=== PATIENT | female | born 1970 | race Caucasian/White ===

== ENCOUNTER → 2017-06-17 10:40 | Outpatient (CLI) | payer BC, SELFPAY ==
[2017-06-23 11:58] LABS: HPV Reflexed? NOT INDICATED
== END ==
PROVIDERS: Visit Provider Obstetrics & Gynecology
DX: Z12.4 Encounter for screening for malignant neoplasm of cervix (principal)
CPT/HCPCS: 88175; G0145

== ENCOUNTER → 2017-12-02 07:07 | Outpatient (CLI) | payer BC, SELFPAY | PROVIDERS: Family Provider Internal Medicine; PCP Internal Medicine; Visit Provider Obstetrics & Gynecology | DX: Z12.31 Encounter for screening mammogram for malignant neoplasm of breast (principal) | CPT/HCPCS: 77063; 77067 ==

== ENCOUNTER → 2017-12-08 14:01 | Outpatient (CLI) | payer BC, SELFPAY ==
--- NOTE | 2017-12-08 14:04 | US_ITS ---
STUDY: ULTRASOUND BREAST - RIGHT REASON FOR EXAM: Female, 47 years old. Abnormal screening mammogram. TECHNIQUE: Axial and longitudinal images of the RIGHT breast were performed with a high resolution ultrasound transducer. COMPARISON: Comparison is made with prior mammogram dated December 04, 2016. FINDINGS: RIGHT Breast: Multiple cysts are seen. The largest measures 1.2 cm x 1.1 cm x 0.7 cm. This is at the 11:00 position of the breast at 2 cm from the nipple. IMPRESSION: Multiple small cysts. ASSESSMENT CATEGORY: BIRADS Category 2: Benign. A letter regarding these results will be sent to the patient by the facility within 30 days. Electronically Signed: Amish Yi MD at 14:52 EDT Tel [phone], Service support , STUDY: ULTRASOUND BREAST - LEFT REASON FOR EXAM: Female, 47 years old. Abnormal screening mammogram. TECHNIQUE: Axial and longitudinal images of the LEFT breast were performed with a high resolution ultrasound transducer. COMPARISON: Comparison is made with prior mammogram dated December 02, 2017 and prior ultrasound the left breast dated December 04, 2016. FINDINGS: LEFT Breast: Multiple small cysts are seen. The largest measures 1.4 cm x 1.3 cm x 0.7 cm. This is at the 1:00 position of the breast at 2 cm from the nipple. US/Breast Limited Unilateral IMPRESSION: Multiple cysts. Routine annual mammographic follow-up is recommended. ASSESSMENT CATEGORY: BIRADS Category 2: Benign. A letter regarding these results will be sent to the patient by the facility within 30 days. Electronically Signed: Amish Yi MD at 14:53 EDT Tel [phone], Service support ,
== END ==
PROVIDERS: Family Provider Internal Medicine; PCP Internal Medicine; Visit Provider Obstetrics & Gynecology
DX: R92.8 Other abnormal and inconclusive findings on diagnostic imaging of breast (principal)
CPT/HCPCS: 76642

== ENCOUNTER → 2019-01-06 07:28 | Outpatient (CLI) | payer BC, SELFPAY ==
--- NOTE | 2019-01-06 07:35 | BI_ITS ---
BILATERAL DIGITAL MAMMOGRAM WITH TOMOSYNTHESIS: Mediolateraloblique and craniocaudal views demonstrate a dominant parenchymal mass and superior lateral aspect of the right breast. This has increased in size when compared with previous study obtained on 12/02/2017. This probably represents a cyst, however, because of its increase in size, a targeted right breast ultrasound superior lateral aspect of the right breast is recommended for additional evaluation. The left breast appears to be normal. No cluster of microcalcifications or architectural distortion is seen. No evidence of skin thickening is identified Breast Density: The breast tissue is heterogeneously dense, which may obscure small masses. CAD was used to assist in final assessment. BI/SCREEN MAMM (CAD) W/GREG BILAT IMPRESSION: A focal wall marginated nodular densities seen in the superior lateral aspect of the right breast was actually increased in size. Although this probably represents a cyst, its increase in size could be due to an underlying tumor and for this reason a targeted right breast ultrasound of the superolateral quadrant of the right breast is recommended for further evaluation. ASSESSMENT CATEGORY: FINAL ASSESSMENT: BI-RAD CATEGORY 0 INCOMPLETE: (NEEDS ADDITIONAL IMAGINING EVALUATION) Targeted right breast ultrasound recommended. Approximately 10% of breast cancers are not detected by mammography. A normal mammogram should not delay biopsy of a clinically suspicious abnormality. [id number] Electronically Signed: Hunter Buckley, at 8:25 EDT Tel , Service support ,
== END ==
PROVIDERS: Family Provider Internal Medicine; PCP Internal Medicine; Referring Provider Obstetrics & Gynecology; Visit Provider Obstetrics & Gynecology
DX: Z12.31 Encounter for screening mammogram for malignant neoplasm of breast (principal)
CPT/HCPCS: 77063; 77067

== ENCOUNTER → 2019-01-11 12:47 | Outpatient (CLI) | payer BC, SELFPAY ==
--- NOTE | 2019-01-11 12:49 | US_ITS ---
STUDY: ULTRASOUND BREAST - RIGHT REASON FOR EXAM: Female, 48 years old. Abnormal screening mammogram. TECHNIQUE: Axial and longitudinal images of the RIGHT breast were performed with a high resolution ultrasound transducer. COMPARISON: Comparison is made with prior mammogram dated January 06, 2019 and prior ultrasound of the right breast dated December 08, 2017. FINDINGS: RIGHT Breast: Multiple cysts are seen in the upper outer quadrant of the right breast. The largest measures 2.3 cm x 2 cm x 0.8 cm at the 10:00 position breast at 3 cm from the nipple. US/Breast Limited Unilateral IMPRESSION: Multiple cysts are seen in the upper outer quadrant of the right breast. The largest measures 2.3 cm x 2.0 cm by 0.8 cm. ASSESSMENT CATEGORY: BIRADS Category 2: Benign. A letter regarding these results will be sent to the patient by the facility within 30 days. Electronically Signed: Amish Yi, at 14:13 EDT , Service support ,
== END ==
PROVIDERS: Family Provider Internal Medicine; PCP Internal Medicine; Referring Provider Obstetrics & Gynecology; Visit Provider Obstetrics & Gynecology
DX: N60.11 Diffuse cystic mastopathy of right breast (principal)
CPT/HCPCS: 76642

== ENCOUNTER → 2019-09-15 14:06 | Outpatient (CLI) | payer BC, SELFPAY ==
[2019-09-20 20:44] LABS: HPV Reflexed? NOT INDICATED
== END ==
PROVIDERS: PCP Internal Medicine; Visit Provider Obstetrics & Gynecology
DX: Z12.4 Encounter for screening for malignant neoplasm of cervix (principal)
CPT/HCPCS: 88175; G0145

== ENCOUNTER → 2020-01-10 08:35 | Outpatient (CLI) | payer BC, SELFPAY ==
--- NOTE | 2020-01-10 08:36 | BI_ITS ---
MAMMOGRAPHY - BILATERAL SCREENING REASON FOR EXAM: Female, 49 years old. Routine annual screening examination. PERTINENT HISTORY: Aunt with breast cancer. Prior ultrasound demonstrated bilateral breast cysts. TECHNIQUE: Digital bilateral breast greg (3D mammographic acquisition) in the CC and MLO projections. 2-D mediolateral oblique (MLO) and craniocaudad (CC) views of both breasts were obtained. CAD: Full Field Digital Mammography with Computer Added Detection was performed. COMPARISON: Comparison is made with prior mammogram dated 01/06/2019 and 12/03/2007. FINDINGS: Breast Composition: The breasts are heterogeneously dense, which may obscure small masses. There is a 2.5 cm x 2.4 cm well-defined nodule in the upper lateral portion of the right breast. This has increased in size as compared to prior study. There is also evidence of a tissue clip marker in the anterior superior lateral aspect of the left breast. No other significant abnormalities are identified. BI/SCREEN MAMM (CAD) W/GERG BILAT IMPRESSION: There has been a mild increase in size of the nodular density in the upper outer aspect of the right breast as described. This was demonstrated to be a dominant cyst on prior sonogram.. Yearly follow-up mammogram recommended. (A) ASSESSMENT CATEGORY: BIRADS Category 2: Benign. A letter regarding these results will be sent to the patient by the facility within 30 days. Approximately 10% of breast cancers are not detected by mammography. A normal mammogram should not delay biopsy of a clinically suspicious abnormality. [id number] Electronically Signed: Amish Yi, at 9:36 EDT , Service support ,
== END ==
PROVIDERS: PCP Internal Medicine; Referring Provider Obstetrics & Gynecology; Visit Provider Obstetrics & Gynecology
DX: Z12.31 Encounter for screening mammogram for malignant neoplasm of breast (principal)
CPT/HCPCS: 77063; 77067

== ENCOUNTER → 2021-01-21 07:33 | Outpatient (CLI) | payer BC, SELFPAY ==
--- NOTE | 2021-01-21 07:36 | BI_ITS ---
MAMMOGRAPHY - BILATERAL SCREENING REASON FOR EXAM: Female, 50 years old. Routine annual screening examination. PERTINENT HISTORY: Aunt with breast cancer. TECHNIQUE: Digital bilateral breast greg (3D mammographic acquisition) in the CC and MLO projections. 2-D mediolateral oblique (MLO) and craniocaudad (CC) views of both breasts were obtained. CAD: Full Field Digital Mammography with Computer Added Detection was performed. COMPARISON: Comparison is made with prior study 01/10/2020 and 01/07/2000. FINDINGS: Breast Composition: The breasts are heterogeneously dense, which may obscure small masses. The nodular density in the upper-outer quadrant of the right breast has decreased in size. It presently measures 1.8 cm x 1.3 cm. There now is evidence of a 1.9 cm x 0.8 cm nodule in the upper slightly lateral aspect of the left breast. Correlation with ultrasound of the left breast is recommended for further evaluation. No other significant abnormalities are identified. BI/SCRN MAMM (CAD)W/GREG BILAT IMPRESSION: Interval decrease in size of the right breast nodule in the upper-outer quadrant of the right breast. There is a new 1.9 cm x 0.8 cm nodule in the upper slightly lateral aspect of the left breast. Correlation with ultrasound of the left breast is recommended. ASSESSMENT CATEGORY: BIRADS Category 0: Incomplete. Need additional imaging evaluation. A letter regarding these results will be sent to the patient by the facility within 30 days. Approximately 10% of breast cancers are not detected by mammography. A normal mammogram should not delay biopsy of a clinically suspicious abnormality. [id number] Electronically Signed: Amish Yi MD at 9:03 EDT , Service support ,
== END ==
PROVIDERS: PCP Internal Medicine; Visit Provider Obstetrics & Gynecology
DX: Z12.31 Encounter for screening mammogram for malignant neoplasm of breast (principal)
CPT/HCPCS: 77063; 77067

== ENCOUNTER → 2021-01-30 07:56 | Outpatient (CLI) | payer BC, SELFPAY ==
--- NOTE | 2021-01-30 08:02 | US_ITS ---
STUDY: ULTRASOUND BREAST - LEFT REASON FOR EXAM: Female, 50 years old. Abnormal screening mammogram. TECHNIQUE: Axial and longitudinal images of the LEFT breast were performed with a high resolution ultrasound transducer. # OF IMAGES: [id number] COMPARISON: Comparison is made with prior mammogram dated 01/21/2021. Comparison is also made with prior sonogram of the left breast dated 12/09/2007. FINDINGS: LEFT Breast: The upper outer quadrant of the left breast was examined. There are 3 cysts seen. The largest cyst measures 1 cm x 0.8 cm by 0.6 cm. This is at the 1 o''clock position of the breast at 2 cm from the nipple. This has decreased in size as compared to prior study. US/Breast Limited Unilateral IMPRESSION: 3 small cysts are seen in the upper outer quadrant of the left breast. The largest measures 1 cm x 0.8 cm x 0.6 cm. ASSESSMENT CATEGORY: BIRADS Category 2: Benign. A letter regarding these results will be sent to the patient by the facility within 30 days. Electronically Signed: Amish Yi MD at 10:47 EDT , Service support ,
== END ==
PROVIDERS: PCP Internal Medicine; Referring Provider Obstetrics & Gynecology; Visit Provider Obstetrics & Gynecology
DX: R92.8 Other abnormal and inconclusive findings on diagnostic imaging of breast (principal); N63.20 Unspecified lump in the left breast, unspecified quadrant
CPT/HCPCS: 76642

== ENCOUNTER 2021-05-19 10:41 | Emergency (ER) | payer BC, SELFPAY ==
[2021-05-19] VITALS (7 sets, daily range): BP systolic 97–125; BP diastolic 50–61; PULSE 99–120; RESP 16–18; TEMP 37.3–38.2; O2SAT 99; BMI 24.3
--- NOTE | 2021-05-19 11:05 | US_ITS ---
STUDY: ABDOMINAL ULTRASOUND - RIGHT UPPER QUADRANT REASON FOR VISIT: Female, 50 years old right upper quadrant pain. Fevers and chills. TECHNIQUE: Ultrasound evaluation of the right upper quadrant was performed with real-time and static coon-scale imaging. TECHNICAL QUALITY: Adequate. COMPARISON: None. FINDINGS: Liver: The liver measures 15.3 cm. There is normal echogenicity of the liver. The bile ducts are within normal limits. There is hepatic color flow. The direction of portal flow is hepatopetal. There is no demonstrated mass lesion. Gallbladder: Normal distended gallbladder. The gallbladder wall measures 2 mm. There is a negative sonographic Barrientos''s sign. There is no pericholecystic fluid. There are no gallstones. Findings suggestive of sludge in the gallbladder lumen. Common Bile Duct (C.B.D.): The common bile duct measures 4 mm. Pancreas: Normal size of the head, body and tail of the pancreas. There is normal echogenicity of the pancreas. There is no demonstrated pancreatic mass or cyst. Right Kidney: Normal size of the right kidney. The right kidney measures 11.2 cm x 5.1 cm x 4.9 cm. Normal renal cortex. The right cortex measures 1.1 cm. There is no demonstrated renal mass or cyst. There is no right hydronephrosis. US/Gallbladder IMPRESSION: Findings suggestive of a small amount of sludge in the gallbladder lumen. Electronically Signed: Amish Yi MD at 12:42 EST ,
--- NOTE | 2021-05-19 11:05 | EDS_ITS ---
HPI History of Present Illness Chief Complaint: Flank Pain Informant: patient Onset/Context/Timing Onset: Days (4 days) Context: Gradual Onset Narrative Narrative: Patient developed chills and nausea with general malaise 4 days ago. She states she just went to sleep a lot. She developed bilateral flank pain last evening that wraps around into the upper abdomen. She was seen at urgent care this morning and advised to come to the emergency room. She states they did check her urine and was told it was not a urinary infection. She did state they told her there was blood in her urine as well as ketones. PFSH PFSH Medical History no medical history no medical history Home Medications calcium carbonate 500 mg PO DAILY 10/13/16 [History Last Taken Unknown] cyclobenzaprine 10 mg PO TID 10/13/16 [History Last Taken Unknown] methylprednisolone 4 mg PO DAILY 10/13/16 [History Last Taken Unknown] multivitamin [Daily Multiple Vitamin] 1 ea PO DAILY 10/13/16 [History Last Taken Unknown] oxycodone-acetaminophen 1 - 2 tab PO Q6H PRN PRN #20 tab 10/13/16 [Rx Last Taken Unknown] Allergy/AdvReac Type Severity Reaction Status Date / Time No Known Allergies Allergy Verified 05/19/21 10:42 Social History Smoking Status: Never smoker ROS ROS ED Constitutional Constitutional ED: Reports chills; Denies fever(s) Eyes Eyes: Denies change in vision ENT ENT ED: Denies sore throat Cardiovascular Cardiovascular: Denies chest pain Respiratory/Chest Respiratory/Chest: Denies cough or dyspnea Gastrointestinal Gastrointestinal: Reports abdominal pain and nausea; Denies diarrhea or vomiting Genitourinary Genitourinary ED: Denies dysuria Musculoskeletal Musculoskeletal: Reports back pain Integumentary Denies rash Neurologic Neurologic: Denies headache(s) or weakness Allergic/Immunologic Allergic/Immunologic ED: Denies urticaria EXAM Physical Exam Const Vital Signs: 05/19/21 10:43 05/19/21 13:01 05/19/21 13:11 Temperature 99.2 F H 100.8 F H Temperature Source Oral Oral Pulse Rate 118 H 102 H Respiratory Rate 16 18 Blood Pressure 125/57 H Blood Pressure Mean 79 Pulse Ox 99 Oxygen Delivery Method Room Air 05/19/21 13:34 05/19/21 15:00 05/19/21 16:24 Temperature 100.8 F H 99.3 F H Temperature Source Oral Oral Pulse Rate 102 H 120 H 113 H Respiratory Rate 18 18 18 Blood Pressure 125/57 H 119/61 97/50 L Blood Pressure Mean 79 80 65 Pulse Ox 99 Oxygen Delivery Method Room Air Positive well nourished and well developed General Appearance ED: well developed HEENT Reports moist mucous membranes Eyes PERRL and EOMs intact bilaterally Neck supple Chest Wall inspection of chest normal and palpation of chest normal Resp normal respiratory effort and clear to auscultation bilaterally Cardio regular rate and regular rhythm GI Palpation: soft and tender RUQ Extremity normal to inspection Neuro oriented x3 Sensorium / Orientation: alert Psych mental status grossly normal Skin no rashes or lesions noted MDM MDM Lab Data Labs: Laboratory Results - last 24 hr 05/19/21 05/19/21 05/19/21 11:00 11:00 12:30 WBC 16.3 H RBC 4.48 Hgb 13.7 Hct 41.4 MCV 92.4 MCH 30.6 MCHC 33.1 RDW Std Deviation 45.4 H RDW Coeff of Hernán 13.4 Plt Count 242 MPV 9.3 Immature Gran % (Auto) 0.500 Neut % (Auto) 74.8 H Lymph % (Auto) 6.8 L [place] % (Auto) 17.6 H Eos % (Auto) 0.1 Baso % (Auto) 0.2 Absolute Neuts (auto) 12.2 H Absolute Lymphs (auto) 1.10 Nucleated RBC % 0 Differential Comment COMMENT Diff Path Review May foll Sodium 136 Potassium 3.4 L Chloride 102 Carbon Dioxide 27.0 Anion Gap 7 BUN 10 Creatinine 0.78 Estim Creat Clear Calc 68.25 Est GFR (MDRD) Af Amer 100 Est GFR (MDRD) Non-Af 83 BUN/Creatinine Ratio 12.8 Glucose 107 H Lactic Acid Calcium 8.8 Total Bilirubin 1.40 H Direct Bilirubin 0.34 H AST 31 ALT 35 Alkaline Phosphatase 93 Total Protein 8.1 Albumin 3.4 Globulin 4.7 H Lipase 50 L Urine Color Yellow Urine Clarity Sl. Cloudy Urine pH 6.0 Ur Specific [place] 1.010 Urine Protein 30 H Urine Glucose (UA) Normal Urine Ketones 50 H Urine Occult Blood 50 H Urine Nitrite Negative Urine Bilirubin Negative Urine Urobilinogen Normal Ur Leukocyte Esterase 25 H Urine RBC 0 SEEN Urine WBC 0-5 SEEN Ur Squamous Epith Cells 0-5 SEEN Urine Bacteria RARE Urine Mucus 0 SEEN 05/19/21 13:30 WBC RBC Hgb Hct MCV MCH MCHC RDW Std Deviation RDW Coeff of Hernán Plt Count MPV Immature Gran % (Auto) Neut % (Auto) Lymph % (Auto) [place] % (Auto) Eos % (Auto) Baso % (Auto) Absolute Neuts (auto) Absolute Lymphs (auto) Nucleated RBC % Differential Comment Diff Path Review Sodium Potassium Chloride Carbon Dioxide Anion Gap BUN Creatinine Estim Creat Clear Calc Est GFR (MDRD) Af Amer Est GFR (MDRD) Non-Af BUN/Creatinine Ratio Glucose Lactic Acid 1.0 Calcium Total Bilirubin Direct Bilirubin AST ALT Alkaline Phosphatase Total Protein Albumin Globulin Lipase Urine Color Urine Clarity Urine pH Ur Specific [place] Urine Protein Urine Glucose (UA) Urine Ketones Urine Occult Blood Urine Nitrite Urine Bilirubin Urine Urobilinogen Ur Leukocyte Esterase Urine RBC Urine WBC Ur Squamous Epith Cells Urine Bacteria Urine Mucus Radiography Diagnostic Testing: Clinical Impression(s) from Imaging Studies Gallbladder Ultrasound 05/19/21 11:05 IMPRESSION: Findings suggestive of a small amount of sludge in the gallbladder lumen. Electronically Signed: Amish Yi MD at 12:42 EST , Abdomen/Pelvis CT 05/19/21 14:48 IMPRESSION: 4.2 cm x 5.27 x 4.9 cm cystic mass in the lateral aspect of the left lobe of liver adjacent to the falciform ligament. This may represent a conglomeration of cystic structures versus possible cystic mass or atypical hemangioma. A repeat sonogram of the liver is recommended. Findings suggestive of sludge in the gallbladder lumen. 4 cm x 2.7 cm cyst in the left ovary. Electronically Signed: Amish Yi MD at 15:27 EST , Discharge Plan Triage Chief Complaint: Flank Pain ED Provider: Roya Fuchs Dx/Rx/DC Orders Clinical Impression: Abdominal pain, Fever Instructions: ED Abdominal Pain Unkn Cause Fem, ED FUO Adult Prescriptions: No Action multivitamin [Daily Multiple] 1 EACH tablet 1 ea PO DAILY RF: 0 cyclobenzaprine 10 MG tablet 10 mg PO TID RF: 0 methylprednisolone 4 MG tablet 4 mg PO DAILY RF: 0 calcium carbonate 500 MG tablet 500 mg PO DAILY RF: 0 oxycodone-acetaminophen 1 TABLET tablet 1 - 2 tab PO Q6H PRN PRN (Reason: Pain) Qty: 20 RF: 0 Primary Care Provider: Melania Pulido Referrals: Melania Pulido MD [Primary Care Provider] - 3-5 Days Friend,DO Monty [STAFF PHYSICIAN] - As soon as possible Disposition Disposition: Home, Self Care
[2021-05-19] MEDS: Ondansetron 4 MG/2 ML Vial IV (11:13)
[2021-05-19] MEDS: 0.9% Normal Saline 1,000 ML 1000 ML IV (11:13)
[2021-05-19] MEDS: Morphine 4 MG/ML Syringe IV (11:14)
[2021-05-19 11:27] LABS: Absolute Neutrophil Count 12.2 X10^3/uL (2.0-7.7); Basophil# 0.04 X10^3/uL; Basophil% 0.2 % (0-1); Eosinophil# 0.01 X10^3/uL; Eosinophils% 0.1 % (0-5); Hematocrit 41.4 % (37-47); Hemoglobin 13.7 g/dL (12.0-15.0); Lymphocyte % 6.8 % (19-41); Mean Corp Hgb Conc 33.1 g/dL (32-36); Mean Corpuscular Hgb 30.6 pg (27.0-32.0); Mean Corpuscular Volume 92.4 fL (81-99); Mean Platelet Vol. 9.3 fl (6.2-12.0); Monocyte# 2.86 X10^3/uL; Monocyte% 17.6 % (0-10); NRBC Flagged by Analyzer 0 % (0-5); Neutrophil % 74.8 % (47-70); POSITIVE DIFFERENTIAL YES; Platelet Count 242 K/mm3 (150-450); RBC Distribution Width CV 13.4 % (11.6-14.6); RBC Distribution Width SD 45.4 fl (35.1-43.9); Red Blood Count 4.48 M/mm3 (4.2-5.4); White Blood Count 16.3 K/mm3 (4.4-11.0)
[2021-05-19 11:29] LABS: Differential Indicated SCAN CRITERIA MET
[2021-05-19 11:43] LABS: AST(SGOT) 31 U/L (15-37); Alanine Aminotransfer ALT/SGPT 35 U/L (13-56); Albumin, Serum 3.4 g/dL (3.2-5.0); Alkaline Phosphatase 93 U/L (45-117); Anion Gap 7 (5-15); BUN 10 mg/dL (7-18); BUN/Creat Ratio 12.8 RATIO (10-20); Bilirubin, Direct 0.34 mg/dL (0.00-0.30); Calcium,Total 8.8 mg/dL (8.5-10.1); Chloride 102 mmol/L (98-107); Creatinine, Serum 0.78 mg/dL (0.55-1.02); EST Glomerular Filtration Rate 83 mL/min (>60); Est Glom Filt Rate - Afr Amer 100 mL/min (>60); Estimated Creatinine Clearance 68.25 ml/min; Globulin 4.7 g/dL (2.2-4.2); Glucose 107 mg/dL (74-106); Lipase 50 U/L (73-393); Potassium 3.4 mmol/L (3.5-5.1); Protein, Total 8.1 g/dL (6.4-8.2); Sodium Level 136 mmol/L (136-145)
[2021-05-19 12:37] LABS: Mucous, Urine 0 SEEN /hpf (<or=2+); Red Blood Cells-Urine 0 SEEN /hpf (0-5)
[2021-05-19 13:01] LABS: Color, Urine Yellow (Yellow); Glucose, Dipstick Normal (Normal); Ketone-Dipstick 50 mg/dl (Negative); Leukocyte Esterase-Dipstick 25 /ul (Negative); Nitrite-Dipstick Negative (Negative); Occult Blood-Urine 50 /ul (Negative); Protein-Dipstick 30 mg/dl (Negative); Urine Bilirubin Dipstick Negative (Negative); Urine Clarity Sl. Cloudy (Clear); Urine Urobilinogen Normal (Normal)
[2021-05-19 13:09] LABS: White Blood Cells 0-5 SEEN /hpf (0-5)
[2021-05-19 13:10] LABS: Bacteria RARE /hpf (None Seen); Squamous Epithelial Cells - UA 0-5 SEEN /hpf (5-10)
[2021-05-19] MEDS: Acetaminophen 500 MG Tablet 1000 MG PO (13:38)
--- NOTE | 2021-05-19 14:48 | CT_ITS ---
STUDY: CT ABDOMEN AND PELVIS WITH CONTRAST REASON FOR EXAM: Female, 50 years old. Abdominal pain and nausea. RADIATION DOSAGE (If Supplied By Facility): CTDIvol = ( 3.82 ) mGy, DLP = ( 435.69 ) mGycm TECHNIQUE: Transaxial images were obtained from the dome of the diaphragm to the symphysis pubis with oral contrast. Oral and amp; IV Gastrografin and amp; 100mL Isovue-300 was administered. Sagittal and coronal images were reconstructed. Individualized dose optimization techniques were used for this CT. COMPARISON: None. FINDINGS: Mild degree of increased markings at the lung bases with areas of confluence suggestive of bibasilar atelectasis. The visualized portions of the heart are within normal limits. There is a 4.2 cm by 5.2 cm x 4.9 cm cystic mass in the lateral aspect of the left lobe of liver adjacent to the falciform ligament. This was not well seen on prior ultrasound of the liver done earlier today. A repeat sinogram will be performed. This may represent an atypical hemangioma versus a conglomeration of cysts. I suspect a small amount of sludge in the gallbladder lumen. Normal spleen. Normal pancreas. Normal bilateral adrenal glands. Normal right kidney. Normal left kidney. Normal visualized stomach. Normal small intestine. Normal colon. The appendix is visualized and appears normal. Normal abdominal aorta. Normal inferior vena cava. Normal retroperitoneum. Normal urinary bladder. There is a 4 cm x 2.7 cm cyst in the left ovary. Normal abdominal wall. Normal osseous structures. CT/Abdomen/Pelvis WITH Contrast IMPRESSION: 4.2 cm x 5.27 x 4.9 cm cystic mass in the lateral aspect of the left lobe of liver adjacent to the falciform ligament. This may represent a conglomeration of cystic structures versus possible cystic mass or atypical hemangioma. A repeat sonogram of the liver is recommended. Findings suggestive of sludge in the gallbladder lumen. 4 cm x 2.7 cm cyst in the left ovary. Electronically Signed: Amish Yi MD at 15:27 EST ,
[2021-05-20 15:17] LABS: Pathologist Review Reviewed
== END 2021-05-19 17:33 | disposition home or self-care (01) ==
PROVIDERS: Emergency Provider Emergency Medicine; PCP Internal Medicine; Visit Provider Emergency Medicine
DX: R10.9 Unspecified abdominal pain (principal); R50.9 Fever, unspecified; R31.9 Hematuria, unspecified
CPT/HCPCS: 74177; 76705; 80048; 80076; 81001; 83605; 83690; 85025; 87040; 99285; J7030; Q9967; A4216; J2405

== ENCOUNTER 2021-05-20 06:25 | Emergency (ER) | payer BC, SELFPAY ==
[2021-05-20] VITALS (11 sets, daily range): BP systolic 102–118; BP diastolic 53–76; PULSE 68–121; RESP 16–18; TEMP 37.6–38; O2SAT 92–99; BMI 24.9
[2021-05-20 06:55] LABS: Absolute Lymphocyte Count 0.74 X10^3/uL (0.83-4.51); Absolute Neutrophil Count 11.4 X10^3/uL (2.0-7.7); Basophil# 0.03 X10^3/uL; Basophil% 0.2 % (0-1); Eosinophil# 0.01 X10^3/uL; Eosinophils% 0.1 % (0-5); Hematocrit 36.8 % (37-47); Hemoglobin 12.5 g/dL (12.0-15.0); Lymphocyte # 0.74 X10^3/ul (0.83-4.51); Lymphocyte % 4.9 % (19-41); Mean Corpuscular Hgb 30.6 pg (27.0-32.0); Mean Platelet Vol. 9.2 fl (6.2-12.0); Monocyte# 2.68 X10^3/uL; Monocyte% 17.9 % (0-10); NRBC Flagged by Analyzer 0 % (0-5); Neutrophil # 11.36 X10^3/uL (2.7-7.7); POSITIVE DIFFERENTIAL YES; POSITIVE MORPHOLOGY YES; Platelet Count 218 K/mm3 (150-450); RBC Distribution Width CV 13.2 % (11.6-14.6); RBC Distribution Width SD 43.5 fl (35.1-43.9); Red Blood Count 4.09 M/mm3 (4.2-5.4)
[2021-05-20] MEDS: Ondansetron 4 MG/2 ML Vial IV (06:55)
[2021-05-20] MEDS: Morphine 4 MG/ML Syringe IV (06:55)
[2021-05-20] MEDS: 0.9% Normal Saline 1,000 ML 999 ML IV (06:55)
[2021-05-20 07:02] LABS: Mucous, Urine 0 SEEN /hpf (<or=2+); Red Blood Cells-Urine 0 SEEN /hpf (0-5)
[2021-05-20 07:10] LABS: Lactic Acid 1.1 mmol/L (0.4-1.9)
[2021-05-20 07:12] LABS: Erythrocyte Sedimentation Rate 64 mm/hr (0-30)
[2021-05-20 07:12] LABS: Color, Urine Yellow (Yellow); Glucose, Dipstick Normal (Normal); Leukocyte Esterase-Dipstick 25 /ul (Negative); Nitrite-Dipstick Negative (Negative); Occult Blood-Urine 50 /ul (Negative); Protein-Dipstick 100 mg/dl (Negative); Specific Gravity, Urine 1.015 (1.002-1.030); Urine Bilirubin Dipstick Negative (Negative); Urine Clarity Clear (Clear); Urine Urobilinogen 1 mg/dl (Normal)
[2021-05-20 07:14] LABS: Ketone-Dipstick 150 mg/dl (Negative)
[2021-05-20 07:14] LABS: Differential Indicated SCAN CRITERIA MET
[2021-05-20 07:17] LABS: AST(SGOT) 39 U/L (15-37); Alanine Aminotransfer ALT/SGPT 41 U/L (13-56); Albumin, Serum 2.8 g/dL (3.2-5.0); Alkaline Phosphatase 92 U/L (45-117); Anion Gap 7 (5-15); BUN 10 mg/dL (7-18); BUN/Creat Ratio 15.2 RATIO (10-20); Bilirubin, Direct 0.64 mg/dL (0.00-0.30); Calcium,Total 8.2 mg/dL (8.5-10.1); Chloride 106 mmol/L (98-107); Creatinine, Serum 0.66 mg/dL (0.55-1.02); EST Glomerular Filtration Rate 101 mL/min (>60); Est Glom Filt Rate - Afr Amer 122 mL/min (>60); Estimated Creatinine Clearance 80.65 ml/min; Globulin 4.2 g/dL (2.2-4.2); Glucose 98 mg/dL (74-106); Lipase 26 U/L (73-393); Potassium 3.2 mmol/L (3.5-5.1); Sodium Level 136 mmol/L (136-145)
[2021-05-20 07:18] LABS: Bacteria RARE /hpf (None Seen); Squamous Epithelial Cells - UA 0-5 SEEN /hpf (5-10); White Blood Cells 0-5 SEEN /hpf (0-5)
--- NOTE | 2021-05-20 07:32 | EDS_ITS ---
HPI History of Present Illness Chief Complaint: Abd Pain Narrative Narrative: Patient is a 50-year-old female who was seen in the ER yesterday for same complaint. She states that she developed some mild upper abdominal pain on Wednesday. She states the pain progressed and she developed a fever up to 101. She went to an urgent care and was sent to the ER for further evaluation. In the ER basic blood work was obtained and she did have elevation to her white blood cell count and slight elevation to her liver enzyme. An ultrasound was obtained which showed gallbladder sludge but no obvious stones or signs of infection. A CT was then added which showed a liver mass. The case was di scussed with GI and the decision was made to have the patient go home and follow-up on an outpatient basis. Patient states that the pain worsened overnight and secondary to this comes in for repeat evaluation PFSH PFS Home Medications calcium carbonate 500 mg PO DAILY 10/13/16 [History Last Taken Unknown] multivitamin [Daily Multiple Vitamin] 1 ea PO DAILY 10/13/16 [History Last Taken Unknown] Allergy/AdvReac Type Severity Reaction Status Date / Time No Known Allergies Allergy Verified 05/20/21 06:26 Social History Smoking Status: Never smoker ROS ROS ED Constitutional Constitutional ED: Denies fever(s) ENT ENT ED: Denies sore throat Cardiovascular Cardiovascular: Denies chest pain Respiratory/Chest Respiratory/Chest: Denies cough or dyspnea Gastrointestinal Gastrointestinal: Reports abdominal pain and nausea; Denies diarrhea or vomiting Genitourinary Genitourinary ED: Denies dysuria Musculoskeletal Musculoskeletal: Reports back pain; Denies myalgias Integumentary Denies rash Neurologic Neurologic: Denies headache(s) Hematologic/Lymphatic Hematologic/Lymphatic: Denies easy bleeding or easy bruising EXAM Physical Exam Const Vital Signs: 05/20/21 06:28 05/20/21 07:38 Temperature 99.7 F H Temperature Source Oral Pulse Rate 68 109 H Respiratory Rate 16 16 Blood Pressure 106/66 109/54 L Blood Pressure Mean 79 72 Pulse Ox 98 94 Oxygen Delivery Method Room Air Room Air Positive well nourished and well developed General Appearance ED: well developed HEENT Reports dry mucous membranes Mouth ED: Yes dry mucous membranes Mouth: dry mucous membranes Eyes PERRL and EOMs intact bilaterally General Eye ED: Negative for scleral icterus Neck supple Resp normal respiratory effort and clear to auscultation bilaterally Cardio regular rhythm Rate: tachycardic and other Other Details: Radial pulses are +2-4 bilaterally are equal and symmetric GI non-distended GI Narrative: Abdomen is soft and nondistended with hypoactive bowel sounds. There is pain with palpation in the midepigastric and right upper quadrant region with voluntary guarding at these sites. Otherwise no rigidity or pulsatile mass no fluid wave noted. Palpation: soft Back/Spine no CVA tenderness Extremity normal to inspection Neuro oriented x3 and CN's II-XII intact bilaterally Sensorium / Orientation: alert Motor Exam: strength 5/5 throughout Psych mental status grossly normal Skin no rashes or lesions noted General Skin Exam: Negative for jaundice MDM MDM MDM Narrative Medical decision making narrative: Patient presented to the ER with a low-grade fever and did have pain with palpation in the midepigastric and right upper quadrant with voluntary guarding. As she already had images obtained yesterday felt no need to repeat CT scan or ultrasound. Repeat blood work was obtained and continues to show leukocytosis with just mild decrease from the previous day. Patient's ESR and CRP are elevated as well but lactic acid is normal. Liver enzymes show mild elevation from the previous day with total bilirubin increasing from 1.3-1.8 and direct bilirubin increasing from 0.3 to 0.6. At this time with her voluntary guarding and pain in the right upper quadrant and mild elevation to her liver enzymes with fever and leukocytosis I did have concern for possible acute cholecystitis even though the ultrasound and CAT scan did not show this. Therefore I discussed the case with general surgery on-call. They recommend covering the patient with Zosyn at this time and obtaining an MRI for improved evaluation of the organ. Therefore patient was started on antibiotics and the MRI will be obtained in the ER for further evaluation. At this time MRI results are pending and patient will be signed out to the oncoming physician. Lab Data Attestation: I reviewed the patient's lab results. Labs: Laboratory Results - last 24 hr 05/20/21 05/20/21 05/20/21 06:34 06:34 06:34 WBC 15.0 H RBC 4.09 L Hgb 12.5 Hct 36.8 L MCV 90.0 MCH 30.6 MCHC 34.0 RDW Std Deviation 43.5 RDW Coeff of Hernán 13.2 Plt Count 218 MPV 9.2 Immature Gran % (Auto) 0.900 Neut % (Auto) 76.0 H Lymph % (Auto) 4.9 L Kings % (Auto) 17.9 H Eos % (Auto) 0.1 Baso % (Auto) 0.2 Absolute Neuts (auto) 11.4 H Absolute Lymphs (auto) 0.74 L Nucleated RBC % 0 ESR 64 H Sodium 136 Potassium 3.2 L Chloride 106 Carbon Dioxide 23.0 Anion Gap 7 BUN 10 Creatinine 0.66 Estim Creat Clear Calc 80.65 Est GFR (MDRD) Af Amer 122 Est GFR (MDRD) Non-Af 101 BUN/Creatinine Ratio 15.2 Glucose 98 Lactic Acid 1.1 Calcium 8.2 L Total Bilirubin 1.80 H Direct Bilirubin 0.64 H AST 39 H ALT 41 Alkaline Phosphatase 92 C-React Prot Ext Range 202.00 H Total Protein 7.0 Albumin 2.8 L Globulin 4.2 Lipase 26 L Urine Color Urine Clarity Urine pH Ur Specific [place] Urine Protein Urine Glucose (UA) Urine Ketones Urine Occult Blood Urine Nitrite Urine Bilirubin Urine Urobilinogen Ur Leukocyte Esterase Urine RBC Urine WBC Ur Squamous Epith Cells Urine Bacteria Urine Mucus 05/20/21 06:58 WBC RBC Hgb Hct MCV MCH MCHC RDW Std Deviation RDW Coeff of Hernán Plt Count MPV Immature Gran % (Auto) Neut % (Auto) Lymph % (Auto) Kings % (Auto) Eos % (Auto) Baso % (Auto) Absolute Neuts (auto) Absolute Lymphs (auto) Nucleated RBC % ESR Sodium Potassium Chloride Carbon Dioxide Anion Gap BUN Creatinine Estim Creat Clear Calc Est GFR (MDRD) Af Amer Est GFR (MDRD) Non-Af BUN/Creatinine Ratio Glucose Lactic Acid Calcium Total Bilirubin Direct Bilirubin AST ALT Alkaline Phosphatase C-React Prot Ext Range Total Protein Albumin Globulin Lipase Urine Color Yellow Urine Clarity Clear Urine pH 6.0 Ur Specific [place] 1.015 Urine Protein 100 H Urine Glucose (UA) Normal Urine Ketones 150 A* Urine Occult Blood 50 H Urine Nitrite Negative Urine Bilirubin Negative Urine Urobilinogen 1 H Ur Leukocyte Esterase 25 H Urine RBC 0 SEEN Urine WBC 0-5 SEEN Ur Squamous Epith Cells 0-5 SEEN Urine Bacteria RARE Urine Mucus 0 SEEN Discharge Plan Triage Chief Complaint: Abd Pain ED Provider: Aniket Dumas Dx/Rx/DC Orders Prescriptions: No Action multivitamin [Daily Multiple] 1 EACH tablet 1 ea PO DAILY RF: 0 calcium carbonate 500 MG tablet 500 mg PO DAILY RF: 0 Primary Care Provider: Melania Pulido
[2021-05-20] MEDS: HYDROmorphone 1 MG/ML Syringe IV ×3 (07:39→19:08)
--- NOTE | 2021-05-20 07:40 | MRI_ITS ---
STUDY: MRI ABDOMEN WITH AND WITHOUT CONTRAST REASON FOR EXAM: Female, 50 years old. Liver mass with ? Acute cholecystitis, F/U TO CT ABD TECHNIQUE: Standardized fat and water weighted pulse sequences were obtained in all 3 orthogonal planes post contrast administration. IV Yes YES was administered for the contrast portion of the examination. COMPARISON: CT and ultrasound 05/19/2021 FINDINGS: The visualized lung bases are unremarkable. The visualized portions of the heart are within normal limits. 4 x 6 cm oval T1 hypointense T2 slightly hyperintense mass of the lateral segment left lobe of liver adjacent to the falciform ligament demonstrates heterogeneous thick-walled septal enhancement worrisome for hepatocellular carcinoma. Normal gallbladder and extrahepatic biliary system. Normal spleen. Normal pancreas. Normal bilateral adrenal glands. Normal right kidney. Normal left kidney. Normal visualized stomach. Normal small intestine. Normal colon. There is non-visualization of the appendix. Normal abdominal aorta. Normal inferior vena cava. Normal retroperitoneum. Normal abdominal wall. Normal osseous structures. MRI/MRI Abd WITH and W/O Contrast IMPRESSION: 4 x 6 cm oval heterogeneously enhancing mass of the lateral segment left lobe of the liver worrisome for hepatocellular carcinoma. Electronically Signed: Antonio Partida MD at 9:33 EST ,
--- NOTE | 2021-05-20 09:55 | RAD_ITS ---
STUDY: X-RAY CHEST REASON FOR EXAM: Female, 50 years old. fever TECHNIQUE: Single AP portable view of the chest. COMPARISON: None. FINDINGS: The lungs are clear and expanded. Elevated right hemidiaphragm. Normal size heart. Normal mediastinum and kateryna. Normal visualized pulmonary arteries. Normal visualized aortic arch and descending thoracic aorta. Normal visualized thoracic spine. Normal visualized ribs, clavicles, and shoulders. There is no demonstrated abnormality of the visualized soft tissue structures of the upper abdomen. RAD/Chest 1 View (Portable) IMPRESSION: No active disease. Electronically Signed: Antonio Partida MD at 10:07 EST ,
--- NOTE | 2021-05-20 10:46 | EX.PCM.CON.S ---
Assessment & Plan Assessment/Plan (1) Fever: (2) Liver mass: (3) LUQ abdominal pain: (4) RUQ pain: (5) Epigastric abdominal pain: PLAN: Did review patient's ultrasound, CAT scan, MRI with the patient and her . Also discussed with Dr. Zach Craft who is a hepatobiliary surgeon at [facility]. Dr. Craft was concerned this may also be hepatocellular carcinoma, small chance it may be benign but more likely the former. Did discuss this with patient and her they were agreeable to transfer to [facility] as patient has not been able to eat due to the pain, but has been able to drink. Patient is also tender in the left upper quadrant as well as epigastric/right upper quadrant. Patient did get Zosyn IV in the ER for possible involvement of the gallbladder with cholecystitis. Gallbladder did not appear to have much sludge on ultrasound with a normal wall at 2.2 and no sonographic Barrientos sign. Also discussed with the ER physician Dr. Henson. Dr. Craft thought that would be available mid afternoon at [facility]. Zeenat Farah M.D. Pager: [phone] [facility] [address] [place] [address], [facility], [address] [place] [address] Office: [phone] HPI Consult Data Date of Consult: 05/20/21 HPI Narrative HPI Narrative: EARNESTINE HALL, is a 50 F who presents to the ER due to upper abdominal pain. Patient states initially she had pain and chills on Wednesday night along with some nausea and vomiting over the weekend. On Wednesday morning patient states she woke up to sharp bilateral back pain which wrapped around to her upper abdomen. Patient continued to have nausea and vomiting was not able to eat much over the weekend. Patient came to the ER had an ultrasound as well as CAT scan was sent home. Patient continued to have abdominal pain came back to the ER as he was only able to eat a little bit of saltines. MRI was done as there is a liver lesion seen on CT abdomen pelvis which was concerning for hepatocellular carcinoma on MRI. Patient is never had a previous CT abdomen pelvis. [facility] Home Medications calcium carbonate 500 mg PO DAILY 10/13/16 [History Last Taken Unknown] multivitamin [Daily Multiple Vitamin] 1 ea PO DAILY 10/13/16 [History Last Taken Unknown] Allergy/AdvReac Type Severity Reaction Status Date / Time No Known Allergies Allergy Verified 05/20/21 06:26 Social History Smoking Status: Never smoker ROS Constitutional Constitutional: Reports anorexia, chills and fever(s) ENT HEENT: Denies dizziness Cardiovascular Cardiovascular: Denies chest pain Respiratory/Chest Respiratory/Chest: Denies cough Gastrointestinal Gastrointestinal: Reports abdominal pain, anorexia, nausea and vomiting; Denies hematemesis Genitourinary Genitourinary: Denies burning urination Musculoskeletal Musculoskeletal: Denies joint pain Integumentary Integumentary: Denies rash Neurologic Neurologic: Denies abnormal gait, abnormal hearing, focal weakness, paresthesias or sensory deficit Endocrine Endocrinology: Denies cold intolerance Hematologic/Lymphatic Hematologic/Lymphatic: Denies anemia, easy bleeding or easy bruising Physical Exam Const alert, oriented x3 and no apparent distress HEENT normocephalic and head/scalp atraumatic Resp normal respiratory effort Cardio regular rate GI soft to palpation; Negative for non-distended Palpation: tender epigastric, LUQ, RUQ and other (Equivocal rebound); Negative for guarding Extremity no clubbing, cyanosis or edema Neuro CN's II-XII intact bilaterally Psych mental status grossly normal Lab / Micro Data Result Diagrams: 05/20/21 06:34 05/20/21 06:34 Labs: Laboratory Results - last 24 hr 05/20/21 06:34: WBC 15.0 H, RBC 4.09 L, Hgb 12.5, Hct 36.8 L, MCV 90.0, MCH 30.6, MCHC 34.0, RDW Std Deviation 43.5, RDW Coeff of Hernán 13.2, Plt Count 218, MPV 9.2, Immature Gran % (Auto) 0.900, Neut % (Auto) 76.0 H, Lymph % (Auto) 4.9 L, Sierra % (Auto) 17.9 H, Eos % (Auto) 0.1, Baso % (Auto) 0.2, Absolute Neuts (auto) 11.4 H, Absolute Lymphs (auto) 0.74 L, Nucleated RBC % 0, ESR 64 H 05/20/21 06:34: Sodium 136, Potassium 3.2 L, Chloride 106, Carbon Dioxide 23.0, Anion Gap 7, BUN 10, Creatinine 0.66, Estim Creat Clear Calc 80.65, Est GFR (MDRD) Af Amer 122, Est GFR (MDRD) Non-Af 101, BUN/Creatinine Ratio 15.2, Glucose 98, Calcium 8.2 L, Total Bilirubin 1.80 H, Direct Bilirubin 0.64 H, AST 39 H, ALT 41, Alkaline Phosphatase 92, C-React Prot Ext Range 202.00 H, Total Protein 7.0, Albumin 2.8 L, Globulin 4.2, Lipase 26 L 05/20/21 06:34: Lactic Acid 1.1 05/20/21 06:58: Urine Color Yellow, Urine Clarity Clear, Urine pH 6.0, Ur Specific [place] 1.015, Urine Protein 100 H, Urine Glucose (UA) Normal, Urine Ketones 150 A*, Urine Occult Blood 50 H, Urine Nitrite Negative, Urine Bilirubin Negative, Urine Urobilinogen 1 H, Ur Leukocyte Esterase 25 H, Urine RBC 0 SEEN, Urine WBC 0-5 SEEN, Ur Squamous Epith Cells 0-5 SEEN, Urine Bacteria RARE, Urine Mucus 0 SEEN Radiology Impression Abdomen MRI 05/20/21 07:40 IMPRESSION: 4 x 6 cm oval heterogeneously enhancing mass of the lateral segment left lobe of the liver worrisome for hepatocellular carcinoma. Electronically Signed: Antonio Partida MD at 9:33 EST , Chest X-Ray 05/20/21 09:55 IMPRESSION: No active disease. Electronically Signed: Antonio Partida MD at 10:07 EST , Charges/Coding Visit Charges Office Visits / Consults: [id number] OP Consult L3
--- NOTE | 2021-05-20 10:51 | NURSING ---
FAXED FACESHEET TO [facility]END[facility]
--- NOTE | 2021-05-20 11:03 | NURSING ---
[facility] ESCALANTE, CALLED. NO BED YET. SHE WILL CALL WHEN WE HAVE ONE
--- NOTE | 2021-05-20 18:40 | ED.RN ---
CALLED PHYSICIANS FOR A RIDE, THE ETA FOR A RIDE WOULD BE 4 HOURS. I ASKED THEM TO OUTSOURCE IT SINCE THE PATIENT HAS BEEN HERE FOR ALREADY 12 HOURS. PHYSICIANS CALLED BACK AND SAID THAT THEY WOULD BE SENDING A [place] [facility]W SO IT WOULD BE 90 MINUTES
[2021-05-21 15:12] LABS: Pathologist Review Reviewed
== END 2021-05-20 20:26 | disposition short-term general hospital (02) ==
PROVIDERS: Emergency Medicine; Emergency Provider Emergency Medicine; PCP Internal Medicine; Visit Provider Emergency Medicine
DX: R50.9 Fever, unspecified (principal); R16.0 Hepatomegaly, not elsewhere classified; R10.13 Epigastric pain; R10.12 Left upper quadrant pain; R79.82 Elevated C-reactive protein (CRP); R11.2 Nausea with vomiting, unspecified; K83.8 Other specified diseases of biliary tract
CPT/HCPCS: 71045; 74183; 80048; 80076; 81001; 83605; 83690; 85025; 85652; 86140; 99285; A9575; J7030; A4216; J2405

== ENCOUNTER → 2021-11-25 | Outpatient (CLI) | payer BC, SELFPAY ==
[2021-12-03 16:32] LABS: HPV APTIMA, High Risk Negative (Negative)
== END | disposition home or self-care (01) ==
LOC: LABSPEC 13:41
PROVIDERS: PCP Internal Medicine; Visit Provider Obstetrics & Gynecology
DX: Z12.4 Encounter for screening for malignant neoplasm of cervix (principal)
CPT/HCPCS: 87624; 88175; G0145

== ENCOUNTER → 2022-01-22 | Outpatient (CLI) | payer BC, SELFPAY ==
--- NOTE | 2022-01-22 07:20 | BI_ITS ---
MAMMOGRAPHY - BILATERAL SCREENING REASON FOR EXAM: Female, 51 years old. Routine annual screening examination. PERTINENT HISTORY: Aunt with breast cancer. Remote left stereotactic breast biopsy. TECHNIQUE: Digital bilateral breast greg (3D mammographic acquisition) in the CC and MLO projections. 2-D mediolateral oblique (MLO) and craniocaudad (CC) views of both breasts were obtained. CAD: Full Field Digital Mammography with Computer Added Detection was performed. COMPARISON: Comparison is made with prior study dated 01/21/2021 and 01/10/2020. FINDINGS: Breast Composition: The breasts are heterogeneously dense, which may obscure small masses. The previously seen nodular density in the upper outer quadrant of the right breast has almost completely resolved. There has been a decrease in the size of the nodular density in the upper lateral portion of the left breast. It presently measures 8.4 mm. These have been demonstrated to be cysts on prior sonogram. No other significant abnormalities are identified. BI/SCRN MAMM (CAD)W/GREG BILAT IMPRESSION: Interval decrease in size of the bilateral breast nodules as described. Yearly follow-up mammogram recommended. (A) ASSESSMENT CATEGORY: BIRADS Category 2: Benign. A letter regarding these results will be sent to the patient by the facility within 30 days. Approximately 10% of breast cancers are not detected by mammography. A normal mammogram should not delay biopsy of a clinically suspicious abnormality. [id number] Electronically Signed: Amish Yi MD at 8:44 EDT ,
== END | disposition home or self-care (01) ==
LOC: OPBI 07:19
PROVIDERS: PCP Internal Medicine; Visit Provider Obstetrics & Gynecology
DX: Z12.31 Encounter for screening mammogram for malignant neoplasm of breast (principal); Z80.3 Family history of malignant neoplasm of breast
CPT/HCPCS: 77063; 77067

== ENCOUNTER → 2023-01-25 | Outpatient (CLI) | payer BC, SELFPAY ==
--- NOTE | 2023-01-25 07:23 | BI_ITS ---
MAMMOGRAPHY - BILATERAL SCREENING REASON FOR EXAM: Female, 52 years old. Routine annual screening examination. PERTINENT HISTORY: Aunt with breast cancer. Prior left stereotactic breast biopsy. TECHNIQUE: Digital bilateral breast greg (3D mammographic acquisition) in the CC and MLO projections. 2-D mediolateral oblique (MLO) and craniocaudad (CC) views of both breasts were obtained. CAD: Full Field Digital Mammography with Computer Added Detection was performed. COMPARISON: Comparison is made with prior study January 22, 2022 and January 21, 2021 FINDINGS: Breast Composition: The breasts are heterogeneously dense, which may obscure small masses. There is a 1.1 cm x 1.2 cm well-defined nodule in the anterior upper lateral portion of the left breast. This has increased in size as compared to prior study. Repeat sonogram is recommended. A tissue clip marker is once again seen in the anterior upper lateral portion of the left breast. No other significant abnormalities are identified. BI/SCRN MAMM (CAD)W/GREG BILAT IMPRESSION: Increase in size of the well-defined nodule in the left breast as described. Correlation with ultrasound is recommended. ASSESSMENT CATEGORY: BIRADS Category 0: Incomplete. Need additional imaging evaluation. A letter regarding these results will be sent to the patient by the facility within 30 days. Approximately 10% of breast cancers are not detected by mammography. A normal mammogram should not delay biopsy of a clinically suspicious abnormality. [id number] Electronically Signed: Amish iY MD at 8:37 EDT ,
== END | disposition home or self-care (01) ==
LOC: OPBI 07:21
PROVIDERS: PCP Internal Medicine; Referring Provider Internal Medicine; Visit Provider Internal Medicine
DX: Z12.31 Encounter for screening mammogram for malignant neoplasm of breast (principal); Z80.3 Family history of malignant neoplasm of breast
CPT/HCPCS: 77063; 77067

== ENCOUNTER → 2023-01-29 | Outpatient (CLI) | payer BC, SELFPAY ==
--- NOTE | 2023-01-29 10:55 | US_ITS ---
STUDY: ULTRASOUND BREAST - LEFT REASON FOR EXAM: Female, 52 years old. Abnormal screening mammogram. TECHNIQUE: Axial and longitudinal images of the LEFT breast were performed with a high resolution ultrasound transducer. # OF IMAGES: 21 COMPARISON: Comparison is made with prior mammogram dated January 25, 2023 and prior sonogram of the left breast dated January 30, 2021. FINDINGS: LEFT Breast: The upper-outer quadrant of the left breast was examined with ultrasound. There is a 1.2 cm x 1.4 cm x 1 cm cyst at the 3:00 position of the breast at 4 cm from the nipple. US/Breast Limited Unilateral IMPRESSION: The mammographic abnormality corresponds to a 1.2 cm x 1.4 cm x 1 cm cyst at the 3:00 position of the breast at 4 cm from the nipple. ASSESSMENT CATEGORY: BIRADS Category 2: Benign. A letter regarding these results will be sent to the patient by the facility within 30 days. Electronically Signed: Amish Yi MD at 14:39 EDT ,
== END | disposition home or self-care (01) ==
PROVIDERS: PCP Internal Medicine; Referring Provider Internal Medicine; Visit Provider Internal Medicine
DX: R92.8 Other abnormal and inconclusive findings on diagnostic imaging of breast (principal)
CPT/HCPCS: 76642

== ENCOUNTER → 2024-01-27 | Outpatient (CLI) | payer BC, SELFPAY ==
--- NOTE | 2024-01-27 07:28 | BI_ITS ---
MAMMOGRAPHY - BILATERAL SCREENING REASON FOR EXAM: Female, 53 years old. Routine annual screening examination. PERTINENT HISTORY: Aunt with breast cancer. TECHNIQUE: Digital bilateral breast greg (3D mammographic acquisition) in the CC and MLO projections. 2-D mediolateral oblique (MLO) and craniocaudad (CC) views of both breasts were obtained. CAD: Full Field Digital Mammography with Computer Added Detection was performed. COMPARISON: Comparison is made with prior study dated January 25, 2023 and January 22, 2022. FINDINGS: Breast Composition: The breasts are heterogeneously dense, which may obscure small masses. There are no dominant masses or suspicious calcifications. The previously seen 1.1 cm x 1.2 cm well-defined nodule in the upper slightly lateral aspect of the left breast is not seen at this time. This was demonstrated to be a cyst on prior sonogram. A tissue clip marker is once again seen in the anterior upper lateral portion of the left breast. Stable small bilateral fat containing axillary lymph nodes. No other significant abnormalities are identified. There has been no significant change since the prior study. BI/SCRN MAMM (CAD)W/GREG BILAT IMPRESSION: Stable bilateral screening mammogram. Yearly follow-up mammogram recommended. (A) ASSESSMENT CATEGORY: BIRADS Category 2: Benign. A letter regarding these results will be sent to the patient by the facility within 30 days. Approximately 10% of breast cancers are not detected by mammography. A normal mammogram should not delay biopsy of a clinically suspicious abnormality. [id number] Electronically Signed: Amish Yi MD at 8:33 EDT ,
== END | disposition home or self-care (01) ==
PROVIDERS: PCP Internal Medicine; Referring Provider Obstetrics & Gynecology; Visit Provider Obstetrics & Gynecology
DX: Z12.31 Encounter for screening mammogram for malignant neoplasm of breast (principal); Z80.3 Family history of malignant neoplasm of breast
CPT/HCPCS: 77063; 77067

== ENCOUNTER → 2025-01-29 | Outpatient (CLI) | payer BC, SELFPAY ==
--- NOTE | 2025-01-29 07:50 | BI_ITS ---
EXAM: BI/SCRN MAMM (CAD)W/GREG BILAT
== END | disposition home or self-care (01) ==
LOC: OPBI 07:49
PROVIDERS: PCP Internal Medicine; Referring Provider Obstetrics & Gynecology; Visit Provider Obstetrics & Gynecology
DX: Z12.31 Encounter for screening mammogram for malignant neoplasm of breast (principal)
CPT/HCPCS: 77063; 77067